=== PATIENT | female | born 1970 | race Caucasian/White ===

== ENCOUNTER 2021-07-01 14:51 | Emergency (ER) | payer MEDICAID ==
[~2021-07-01] VITALS: Ht 152.4 cm; Wt 75.0 kg
[2021-07-01 17:09] LABS: CHLORIDE 107 mEq/L (98-107)
[2021-07-01 17:24] VITALS: BP 169/78
[2021-07-01] MEDS ORDERED: ACETAMINOPHEN 325MG TABLET PO ONE (17:45)
[2021-07-01] MEDS ORDERED: TOPUD MT (17:48)
== END 2021-07-01 18:04 | disposition home or self-care (01) ==
LOC: ER 14:51
DX: G89.29 Other chronic pain (principal); R25.2 Cramp and spasm; R03.0 Elevated blood-pressure reading, without diagnosis of hypertension
CPT/HCPCS: 36415; 73630; 80048; 83735; 99284